=== PATIENT | male | born 1985 | race Caucasian/White ===

== ENCOUNTER 2019-01-17 15:21 | Emergency (ER) | payer OTHER ==
[2019-01-17 15:38] VITALS: BP 130/84; PULSE 62; TEMP 98.2; BMI 27.0
[2019-01-17] MEDS ORDERED: MAG HYDROX/AL HYDROX/SIMETH 30 ML UNIT-DOSE CUP PO ONE (15:41)
[2019-01-17] MEDS ORDERED: FAMOTIDINE 20 MG/50 ML IVPB 20 MG/50 ML MG IVPB ONE ×2 (15:41→15:43)
[2019-01-17] MEDS ORDERED: MAG HYDROX/AL HYDROX/SIMETH 30 ML UNIT-DOSE CUP ONE (15:43)
--- NOTE | 2019-01-17 16:03 | PDOC ---
Documentation entered by Ruth Donnelly SCRIBE, acting as scribe for Jennifer Durham MD. Jennifer Durham MD: This documentation has been prepared by the scribe, Ruth Donnelly SCRIBE, under my direction and personally reviewed by me in its entirety. I confirm that the documentation accurately reflects all work, treatment, procedures, and medical decision making performed by me. History of Present Illness - General Chief Complaint: Pain Stated Complaint: ABDOMINAL PAIN History Source: Patient Exam Limitations: No Limitations - History of Present Illness Initial Comments: 01/17/19 16:03 The patient is a 33-year-old male, with no past medical history, who presents to the ED with epigastric pain that began 30 minutes prior to arrival. The patient woke up in his usual state of health. He reports having breakfast and was able to keep that down. He describes the pain as constant, crampy in sensation, nonradiating, and exacerbated with movement. LBM was this morning and was normal. He has never experienced this pain before. The patient denies any fevers, chills, nausea, vomiting, diarrhea, or constipation. Denies any chest pain, palpitations, or shortness of breath. Denies any urinary symptoms. Allergies: NKA Past History - Past Medical History Allergies/Adverse Reactions: Allergies Allergy/AdvReac Type Severity Reaction Status Date / Time milk Allergy Mild Verified 01/17/19 15:31 gluten Allergy Unknown Verified 01/17/19 15:31 Home Medications: Ambulatory Orders Famotidine [Pepcid] 20 mg PO BID #30 tablet 01/17/19 Review of Systems - Review of Systems Able to Perform ROS?: Yes Comments:: 01/17/19 16:03 GENERAL/CONSTITUTIONAL: No fever or chills. No weakness. HEAD, EYES, EARS, NOSE AND THROAT: No change in vision. No ear pain or discharge. No sore throat. CARDIOVASCULAR: No chest pain or shortness of breath. RESPIRATORY: No cough, wheezing, or hemoptysis. GASTROINTESTINAL: (+)Abdominal pain. No nausea, vomiting, diarrhea or constipation. GENITOURINARY: No dysuria, frequency, or change in urination. MUSCULOSKELETAL: No joint or muscle swelling or pain. No neck or back pain. SKIN: No rash NEUROLOGIC: No headache, vertigo, loss of consciousness, or change in strength/ sensation. ENDOCRINE: No increased thirst. No abnormal weight change. HEMATOLOGIC/LYMPHATIC: No anemia, easy bleeding, or history of blood clots. ALLERGIC/IMMUNOLOGIC: No hives or skin allergy. *Physical Exam - Vital Signs Last Vital Signs Temp Pulse Resp BP Pulse Ox 98.2 F 62 16 130/84 100 01/17/19 15:22 01/17/19 15:22 01/17/19 15:22 01/17/19 15:22 01/17/19 15:22 - Physical Exam Comments: 01/17/19 16:04 GENERAL: (+)Mildly uncomfortable. Awake, alert, and fully oriented. HEAD: No signs of trauma EYES: PERRLA, EOMI, sclera anicteric, conjunctiva clear ENT: Auricles normal inspection, hearing grossly normal, nares patent, oropharynx clear without exudates. Moist mucosa NECK: Normal ROM, supple, no lymphadenopathy, JVD, or masses LUNGS: Breath sounds equal, clear to auscultation bilaterally. No wheezes, and no crackles HEART: Regular rate and rhythm, normal S1 and S2, no murmurs, rubs or gallops ABDOMEN: (+)Epigastric tenderness with guarding or rebound. (+)Mild RUQ tenderness. Soft, normoactive bowel sounds. No masses. EXTREMITIES: Normal range of motion, no edema. No clubbing or cyanosis. No cords, erythema, or tenderness NEUROLOGICAL: Cranial nerves II through XII grossly intact. Normal speech. SKIN: Warm, Dry, normal turgor, no rashes or lesions noted. ED Treatment Course - LABORATORY CBC & Chemistry Diagram: 01/17/19 16:00 01/17/19 16:00 Medical Decision Making - Medical Decision Making 01/17/19 15:53 pt presents to the ED complaining of epigastric pain without associated symptoms. Differential includes biliary disease, pancreatitis, gastritis. Will check labs, treat with pepcid and maalox and reassess. 01/17/19 16:12 01/17/19 18:30 pt feels greatly improved after pepcid and maalox. will discharge home with instructions to follow up with his PMD and return to the Ed for new or worsening symptoms. *DC/Admit/Observation/Transfer Diagnosis at time of Disposition: Abdominal pain Qualifiers: Abdominal location: epigastric Qualified Code(s): R10.13 - Epigastric pain - Discharge Dispostion Disposition: HOME Condition at time of disposition: Good Decision to Admit order: No - Referrals - Patient Instructions Printed Discharge Instructions: DI for Abdominal Pain-Adult Additional Instructions: you came to the ED for abdominal pain. We did blood work to check the liver, gall bladder and pancreas and it was normal. you should return to the ED for severe pain, severe nausea and vomiting, bloody vomit or stool other new or worsening symptoms. You should call your primary care doctor tomorrow for a follow up appointment this week. - Post Discharge Activity
[2019-01-17 16:44] LABS: BASO % 0.4 % (0-2.0); EOS % 2.1 % (0-4.5); HEMATOCRIT 43.9 % (35.4-49); HEMOGLOBIN 14.5 GM/dl (11.7-16.9); LYMPH % 43.9 % (8-40); MCH 27.8 pg (25.7-33.7); MEAN CELL VOLUME 84.3 fl (80-96); MEAN PLT VOLUME 7.8 fl (7.5-11.1); NEUT % 46.6 % (42.8-82.8); PLATELET COUNT 217 K/MM3 (134-434); RBC 5.21 M/mm3 (4.00-5.60); RDW 11.8 % (11.9-15.9); WHITE BLOOD COUNT 5.8 K/mm3 (4.0-10.8)
[2019-01-17 16:55] LABS: ALBUMIN 4.3 g/dl (3.4-5.0); BILIRUBIN,TOTAL 0.5 mg/dl (0.2-1); CREATININE 1.2 mg/dl (0.55-1.3); POTASSIUM 3.7 mmol/L (3.5-5.1); TOT PROT 6.6 g/dl (6.4-8.2)
== END 2019-01-17 18:49 | disposition home or self-care (01) ==
LOC: FER 15:21
PROC: 3E033GC Introduction of Other Therapeutic Substance into Peripheral Vein, Percutaneous Approach (ICD-10-PCS; principal; 2019-01-17)
DX: R10.13 Epigastric pain (principal)
CPT/HCPCS: 36415; 80053; 83690; 85025; 99283-25